=== PATIENT | female | born 1950 | race Caucasian/White ===

== ENCOUNTER 2019-03-30 05:30 | Outpatient (CLI) | payer MEDICARE, BC | END 2019-03-30 23:59 | disposition home or self-care (01) | LOC: DIABETIC 05:30 | PROVIDERS: ATTEND Family Medicine | DX: E11.9 Type 2 diabetes mellitus without complications (principal); Z79.899 Other long term (current) drug therapy | CPT/HCPCS: G0108 ==

== ENCOUNTER 2022-02-27 08:36 | Day surgery (SDC) | payer MEDICARE, BC ==
[2022-02-26 10:08] LABS: CLARITY,URINE CLEAR (Clear); COLOR,URINE YELLOW (Yellow); GLUCOSE, URINE 250 mg/dl (Neg); KETONES,URINE NEGATIVE (Neg); LEUKOCYTE ESTERASE ,URINE NEGATIVE (Neg); NITRITES, URINE NEGATIVE (Neg); OCCULT BLOOD,URINE NEGATIVE (Neg); PH,URINE 6.5 (4.8-8.0); PROTEIN,URINE NEGATIVE (Neg); UROBILINOGEN,URINE 0.2 E.U/dL (0.2-1.0)
[2022-02-26 10:08] LABS: BASOPHILS % (AUTO) 0.3 % (0-1); EOSINOPHILS # (AUTO) 0.1 X10'3 (0-0.9); EOSINOPHILS % (AUTO) 1.2 % (0-6); LYMPHOCYTES # (AUTO) 0.9 X10'3 (1.1-4.8); LYMPHOCYTES % (AUTO) 14.7 % (21-51); MEAN CORPUSCULAR HEMOGLOBIN 29.4 PG (27.0-31.0); MEAN CORPUSCULAR HGB CONC 33.4 g/dL (33.0-36.5); MEAN PLATELET VOLUME 6.7 FL (7.4-10.4); MONOCYTES # (AUTO) 0.4 X10'3 (0-0.9); MONOCYTES % (AUTO) 6.6 % (2-12); NEUTROPHILS # (AUTO) 4.9 X10'3 (1.8-7.7); NEUTROPHILS % (AUTO) 77.2 % (42-75); PRE OP HEMATOCRIT 40.3 % (35.0-45.0); PRE OP HEMOGLOBIN 13.5 g/dL (12.0-16.0); PRE OP PLATELET COUNT 269 X10'3 (140-440); RED BLOOD COUNT 4.58 X10'6 (4.20-5.60); RED CELL DISTRIBUTION WIDTH 13.5 % (11.5-14.5)
[2022-02-26 10:11] LABS: UA COLLECTION TYPE CLN CATCH MIDSTREAM
[2022-02-26 10:21] LABS: ALBUMIN 3.6 G/DL (3.4-5.0); ALKALINE PHOSPHATASE 54 IU/L (46-116); BLOOD UREA NITROGEN 16 MG/DL (7-18); BUN/CREATININE RATIO 16.7 (6.6-38.0); CALCIUM 9.5 MG/DL (8.5-10.1); CHLORIDE 105 MMOL/L (99-107); CREATININE 0.96 MG/DL (0.40-0.90); PRE OP ALT 25 U/L (30-65); PRE OP ANION GAP 10 (8-16); PRE OP AST 26 U/L (10-37); PRE OP BILIRUB, TOTAL 0.6 MG/DL (0.0-1.0); PRE OP GLUCOSE 199 MG/DL (70-104); PRE OP POTASSIUM 3.6 MMOL/L (3.4-5.1); PRE OP SODIUM 142 MMOL/L (135-145); TOTAL CARBON DIOXIDE 27.4 MMOL/L (24-32); TOTAL PROTEIN 7.1 G/DL (6.4-8.2); eGFR 57 ML/MIN
[2022-02-27] VITALS (9 sets, daily range): BP systolic 148–166; BP diastolic 74–82
[~2022-02-27] VITALS: Ht 162.6 cm; Wt 59.5 kg
[~2022-02-27 08:36] MED LIST: FENO135C4 PO; LAMO150T6 PO; LEVO112T39 PO; LISI40TA13 PO; METO10TA3 PO; OLAN5TAB75 PO; ROSU40TA22 PO; SEMA1PEN3 SQ; ZOLP10TA PO; cefazolin/dext.iso 2gm/50ml IV ONE; famotidine 20mg tablet PO ONE; ringers solution, lacted 1,000 ML IV SCH; vancomycin/NS 1 GM in NS 250 ML IV ONE
[2022-02-27] MEDS ORDERED: BUPIVAcaine 0.5% inj/PF 0 ML ONE (10:04)
[2022-02-27] MEDS ORDERED: bacitracin 15gm ointment TP ONE ×2 (10:04→13:05)
[2022-02-27] MEDS ORDERED: BUPIVACAINE liposomal/PF 13.3 MG/ML vial IM ONE (10:27)
[2022-02-27] MEDS ORDERED: BUPIVAcaine 0.5% inj/PF 30 ML ONE (10:27)
[2022-02-27] MEDS ORDERED: midazolam 1 mg/ML 2ml injection ONE (10:32)
[2022-02-27] MEDS ORDERED: fentaNYL/PF 50MCG/1 ML 2ML syringe ONE (10:32)
[2022-02-27] MEDS ORDERED: LIDOcaine 2% (20mg/ml) 5ml vial ONE (10:33)
[2022-02-27] MEDS ORDERED: propofol inj 20 ML IV ONE (10:33)
[2022-02-27] MEDS ORDERED: ROPIVAcaine 0.5% (5mg/ml) 30ml vial ONE ×2 (10:36)
[2022-02-27] MEDS ORDERED: dexamethasone sod phosphate 4mg/ml inj. ONE (10:37)
[2022-02-27] MEDS ORDERED: morphine 4 MG/ML inj SYRINge IV PRN (10:45)
[2022-02-27] MEDS ORDERED: fentaNYL/PF 50MCG/1 ML 2ML syringe IV PRN ×2 (10:45)
[2022-02-27] MEDS ORDERED: ringers solution, lacted 1,000 ML IV SCH (10:45)
[2022-02-27] MEDS ORDERED: morphine 2 MG/ML inj. syringe IV PRN (10:45)
[2022-02-27] MEDS ORDERED: hydrALAZINE 20mg/ml inj. IV PRN (10:45)
[2022-02-27] MEDS ORDERED: labetalol 20mg/4ml (5mg/ml) syringe IV PRN (10:45)
[2022-02-27] MEDS ORDERED: ondansetron/PF 4mg/2ml inj IV PRN (10:45)
[2022-02-27] MEDS ORDERED: sevoflurane 250ml liquid IH ONE (11:12)
[2022-02-27] MEDS ORDERED: ROPIVAcaine 0.2%/PF PUMP/bolus 545 ML POPLITEAL SCH (12:20)
[2022-02-27] MEDS ORDERED: ROPIVAcaine 0.2% (10 MG/5 ML) BOLUS INJECTION POPLITEAL PRN (12:20)
[2022-02-27] MEDS ORDERED: ondansetron/PF 4mg/2ml inj ONE (12:38)
--- NOTE | 2022-02-27 13:22 | NUR ---
Received from OR via [facility] , accompanied by Anesthesiologist PRINCESS and report given by Anesthesiolgist. PATIENT WITH 10L MASK ON WITH 100% SATUARTIONS. VSS. DENIES PAIN. PATIENT WITH SPLINT TO RIGHT FOOT IN SPINT THAT IS CDI. TOES PWD AND WITH + CAP REFILL. ON Q NERVE BLOCK SITE TO RIGHT THIGH AREA ON Q ATTACHED. Addendum: 02/27/22 at 1356 by Joseph Willson RN, RN Amended: Links added.
--- NOTE | 2022-02-27 14:32 | NUR ---
ALL DISCHARGE CRITERIA HAS BEEN MET. VSS, PAIN AT A TOLERABLE LEVEL, VOIDING AND ABLE TO SAFELY AND TRANSFER SELF. IV TAKEN OUT WITHOUT ANY COMPLICATIONS. ALL DISCHARGE INSTRUCTIONS COVERED WITH PATIENT AND ALL QUESTIONS ANSWERED. PATIENT TAKEN OUT VIA WHEELCHAIR TO PERSONAL VEHICLE WHERE FAMILY/FRIEND DROVE PATIENT HOME. PATIENT AND SPOUSE GIVEN DC INSTRUCTIONS . ALL QUESTIONS ANSWERED REGARDING PRESCRIPTION, WIC, NWB STATUS , ON Q PUMP. ( ALL LITERATURE INCLUDED WITH DC PAPERS)AND ELEVATION USING THE CAST ELEVATOR. Addendum: 02/27/22 at 1503 by Joseph Willson RN, RN Amended: Links added.
== END 2022-02-27 14:32 | disposition home or self-care (01) ==
LOC: PAS 08:36
PROVIDERS: ATTEND Podiatrist Foot & Ankle Surgery
DX: S82.841A Displaced bimalleolar fracture of right lower leg, initial encounter for closed fracture (principal); S93.431A Sprain of tibiofibular ligament of right ankle, initial encounter; S93.421A Sprain of deltoid ligament of right ankle, initial encounter; G89.18 Other acute postprocedural pain; F17.210 Nicotine dependence, cigarettes, uncomplicated; I10 Essential (primary) hypertension; F31.9 Bipolar disorder, unspecified; E11.9 Type 2 diabetes mellitus without complications; Z88.5 Allergy status to narcotic agent; Z20.822 Contact with and (suspected) exposure to COVID-19; Z79.899 Other long term (current) drug therapy; Z98.890 Other specified postprocedural states; Z90.49 Acquired absence of other specified parts of digestive tract; Z72.89 Other problems related to lifestyle; W18.40XA Slipping, tripping and stumbling without falling, unspecified, initial encounter; Y93.89 Activity, other specified; Y92.89 Other specified places as the place of occurrence of the external cause; Y99.8 Other external cause status
CPT/HCPCS: 27695; 27814; 27829; 36415; 64445; 64447; 73600; 76000; 76942; 80053; 81003; 82948; 85025; 87635; A6223; C1713; C9290; C9803; J0690; J1100; J2250; J2405; J2704; J2795; J3010; J3370; J3490; J7030; J7120; S0020; Z7506; Z7508; Z7512; A4618; A6253; A6449; A7000

== ENCOUNTER 2023-01-09 12:42 | Emergency (ER) | payer MEDICARE, BC ==
[~2023-01-09] VITALS: Ht 162.6 cm; Wt 59.1 kg
[~2023-01-09 12:42] MED LIST changes: -cefazolin/dext.iso 2gm/50ml IV ONE; -famotidine 20mg tablet PO ONE; -ringers solution, lacted 1,000 ML IV SCH; -vancomycin/NS 1 GM in NS 250 ML IV ONE
[2023-01-09 13:20] LABS: BASOPHILS % (AUTO) 0.4 % (0-1); EOSINOPHILS % (AUTO) 0.1 % (0-6); HEMATOCRIT 44.2 % (35.0-45.0); HEMOGLOBIN 14.5 g/dl (12.0-16.0); LYMPHOCYTES # (AUTO) 1.1 X10'3 (1.1-4.8); LYMPHOCYTES % (AUTO) 12.7 % (21-51); MEAN CORPUSCULAR HEMOGLOBIN 28.9 PG (27.0-31.0); MEAN CORPUSCULAR HGB CONC 32.7 g/dL (33.0-36.5); MEAN CORPUSCULAR VOLUME 88.2 FL (78-98); MONOCYTES # (AUTO) 0.8 X10'3 (0-0.9); MONOCYTES % (AUTO) 8.8 % (2-12); PLATELET COUNT 293 X10'3 (140-440); RED BLOOD COUNT 5.01 X10'6 (4.20-5.60); RED CELL DISTRIBUTION WIDTH 13.9 % (11.5-14.5); WHITE BLOOD COUNT 8.9 X10'3 (4.5-11.0)
[2023-01-09 13:41] LABS: ALANINE AMINOTRANSFERASE 20 U/L (12-78); ALBUMIN 4.2 G/DL (3.4-5.0); ALBUMIN/GLOBULIN RATIO 1.2 (1.1-1.5); ALKALINE PHOSPHATASE 88 IU/L (46-116); ANION GAP 12 (8-16); ASPARTATE AMINO TRANSFERASE 24 U/L (10-37); BILIRUBIN,TOTAL 0.7 MG/DL (0.1-1.0); BLOOD UREA NITROGEN 14 MG/DL (7-18); CALCIUM 9.6 MG/DL (8.5-10.1); CHLORIDE 101 MMOL/L (99-107); GLUCOSE 254 MG/DL (70-104); POTASSIUM 3.4 MMOL/L (3.5-5.1); SODIUM 137 MMOL/L (135-145); TOTAL CARBON DIOXIDE 24.2 MMOL/L (24-32); TOTAL PROTEIN 7.7 G/DL (6.4-8.2); eGFR 55 ML/MIN
[2023-01-09 13:45] LABS: CLARITY,URINE SLIGHTLY CLOUDY (Clear); COLOR,URINE ORANGE (Yellow); PH,URINE 6.5 (4.8-8.0)
[2023-01-09 13:49] LABS: UA COLLECTION TYPE CLN CATCH MIDSTREAM
[2023-01-09 13:50] LABS: BACTERIA,URINE 3+ /HPF (Neg); MUCUS STRANDS FEW /LPF (Neg); RBC,URINE 0-2 /HPF (0-2); SQUAMOUS EPITHELIAL CELL,UR FEW /LPF (FEW); WBC,URINE 50-100 /HPF (0-4)
[2023-01-09 13:57] VITALS: BP 168/73
[2023-01-09] MEDS ORDERED: POTASSIUM BICARB 20meq eff tab 20 MEQ TABLET.EFF PO STA (14:26)
[2023-01-09] MEDS ORDERED: amox tr/potassium clavulanate 875/125mg TAB PO ONE (14:30)
[2023-01-09] MEDS ORDERED: AMOX-117 PO (14:40)
--- NOTE | 2023-01-09 16:36 | NUR ---
I called patient to let her know that we missed giving her Augmentin prior to leaving the ER. She said she dont have it yet and requesting her RX to be transfer over to [facility] pharmacy at [facility] as the [facility] pharmacy she normally get her RX filled is closed today.
--- NOTE | 2023-01-09 16:52 | NUR ---
Called in prescription for Augmentin to [facility] at [address] as the one in [address] was closing soon. I called the patient back and let her know about this. Pt was instructed over the phone to take the Augmentin as soon as she has it. I let her know that [facility] [address] will be closingat 6 pm. Patient verbalized undertanding of instructions made
--- NOTE | 2023-01-09 17:13 | NUR ---
FAMILIA Cochran notified about the Augmentin and EfferK were not given prior to discharge. I also let her know that I called patient about this, called in the prescription to pharmacy, and gave patient instruction to start it today as soon as she has it.
== END 2023-01-09 16:39 | disposition home or self-care (01) ==
LOC: ER 12:42
DX: N10 Acute pyelonephritis (principal); M54.9 Dorsalgia, unspecified; R11.0 Nausea; R42 Dizziness and giddiness; Z88.5 Allergy status to narcotic agent
CPT/HCPCS: 36415; 80053; 81001; 83605; 83735; 83880; 84145; 84484; 85025; 87040; 87077; 87088; 87186; 93005; 99284

== ENCOUNTER 2023-04-25 12:55 | Emergency (ER) | payer MEDICARE, BC ==
[~2023-04-25] VITALS: Ht 162.6 cm; Wt 58.6 kg
[2023-04-25 13:17] LABS: BASOPHILS % (AUTO) 0.4 % (0-1); EOSINOPHILS % (AUTO) 0.3 % (0-6); HEMATOCRIT 44.5 % (35.0-45.0); HEMOGLOBIN 14.7 g/dl (12.0-16.0); LYMPHOCYTES # (AUTO) 1.3 X10'3 (1.1-4.8); LYMPHOCYTES % (AUTO) 16.9 % (21-51); MEAN CORPUSCULAR HEMOGLOBIN 29.2 PG (27.0-31.0); MEAN CORPUSCULAR VOLUME 88.6 FL (78-98); MEAN PLATELET VOLUME 7.4 FL (7.4-10.4); MONOCYTES # (AUTO) 0.6 X10'3 (0-0.9); MONOCYTES % (AUTO) 7.9 % (2-12); NEUTROPHILS # (AUTO) 5.9 X10'3 (1.8-7.7); NEUTROPHILS % (AUTO) 74.5 % (42-75); PLATELET COUNT 261 X10'3 (140-440); RED BLOOD COUNT 5.02 X10'6 (4.20-5.60); RED CELL DISTRIBUTION WIDTH 14.1 % (11.5-14.5); WHITE BLOOD COUNT 7.9 X10'3 (4.5-11.0)
[2023-04-25 13:31] LABS: ALANINE AMINOTRANSFERASE 19 U/L (12-78); ALBUMIN 4.3 G/DL (3.4-5.0); ALBUMIN/GLOBULIN RATIO 1.5 (1.1-1.5); ALKALINE PHOSPHATASE 62 IU/L (46-116); ANION GAP 11 (8-16); ASPARTATE AMINO TRANSFERASE 18 U/L (10-37); BILIRUBIN,TOTAL 0.7 MG/DL (0.1-1.0); BLOOD UREA NITROGEN 11 MG/DL (7-18); BUN/CREATININE RATIO 10.4 (10.0-20.0); CHLORIDE 104 MMOL/L (99-107); CREATININE 1.06 MG/DL (0.40-0.90); GLUCOSE 256 MG/DL (70-104); POTASSIUM 3.6 MMOL/L (3.5-5.1); SODIUM 138 MMOL/L (135-145); TOTAL CARBON DIOXIDE 22.7 MMOL/L (24-32); TOTAL PROTEIN 7.2 G/DL (6.4-8.2); eGFR 51 ML/MIN
--- NOTE | 2023-04-25 14:37 | NUR ---
PT BACK FROM CT
[2023-04-25 14:47] LABS: COLOR,URINE YELLOW (Yellow); GLUCOSE, URINE 500 mg/dl (Neg); KETONES,URINE NEGATIVE (Neg); LEUKOCYTE ESTERASE ,URINE NEGATIVE (Neg); NITRITES, URINE NEGATIVE (Neg); OCCULT BLOOD,URINE NEGATIVE (Neg); PROTEIN,URINE NEGATIVE (Neg); UROBILINOGEN,URINE 0.2 E.U/dL (0.2-1.0)
[2023-04-25 14:48] LABS: UA COLLECTION TYPE CLN CATCH MIDSTREAM
[2023-04-25 14:52] LABS: CLARITY,URINE SLIGHTLY CLOUDY (Clear); RBC,URINE NONE SEEN /HPF (0-2); WBC,URINE 0-4 /HPF (0-4)
[2023-04-25 14:53] LABS: BACTERIA,URINE FEW /HPF (Neg); MUCUS STRANDS NONE SEEN /LPF (Neg); SQUAMOUS EPITHELIAL CELL,UR MODERATE /LPF (FEW)
[2023-04-25 15:15] VITALS: BP 101/77
[2023-04-25] MEDS ORDERED: CYCL-1 PO (15:44)
[2023-04-25] MEDS ORDERED: cyclobenzaprine 10mg tablet PO ONE (15:45)
[2023-04-25] MEDS ORDERED: acetaminophen 325mg tablet PO ONE (15:45)
== END 2023-04-25 16:01 | disposition home or self-care (01) ==
LOC: ER 12:55
DX: S29.012A Strain of muscle and tendon of back wall of thorax, initial encounter (principal); R42 Dizziness and giddiness; Z88.5 Allergy status to narcotic agent; X58.XXXA Exposure to other specified factors, initial encounter; Y93.89 Activity, other specified; Y92.89 Other specified places as the place of occurrence of the external cause; Y99.8 Other external cause status
CPT/HCPCS: 36415; 70450; 74176; 80053; 81001; 83880; 84484; 85025; 93005; 99284

== ENCOUNTER 2023-06-14 08:37 | Outpatient (CLI) | payer MEDICARE, BC ==
[~2023-06-14 08:37] MED LIST changes: +CYCL-1 PO; +diatr meglu/diatrizoate 30ml oral sol.-(3 dose) bottle ONE
[2023-06-14] MEDS ORDERED: iohexol 300mg/ml 100ml inj. ONE (09:04)
== END 2023-06-14 23:59 | disposition home or self-care (01) ==
LOC: RAD 08:37
PROVIDERS: ATTEND Nurse Practitioner Family
DX: K63.89 Other specified diseases of intestine (principal); R10.9 Unspecified abdominal pain; R63.4 Abnormal weight loss; I70.0 Atherosclerosis of aorta; M47.817 Spondylosis without myelopathy or radiculopathy, lumbosacral region
CPT/HCPCS: 74177; J3490; Q9963; Q9967